=== PATIENT | male | born 2000 | race Hispanic/Latino ===

== ENCOUNTER 2018-11-30 16:02 | Emergency (ER) | payer SELFPAY ==
--- NOTE | 2018-11-30 17:10 | RAD ---
RIGHT FIFTH FINGER THREE VIEWS: 11/30/18 HISTORY: 18-year-old male with history of pain following an injury. Jammed his finger. There is a somewhat oblique displaced fracture off the dorsal base of the distal phalanx of the fifth finger with some volar subluxation of the distal phalanx relative to the middle phalanx. IMPRESSION: Displaced chip type fracture off the dorsal aspect of the base of the distal phalanx with some volar subluxation of the distal phalanx relative to the middle phalanx evidence for a Mallet finger. POS: [facility]
[2018-11-30] MEDS ORDERED: Ibuprofen 800 MG TAB ONE (17:11)
== END 2018-11-30 17:20 | disposition home or self-care (01) ==
LOC: NAV ERS 16:02
DX: S62.636A Displaced fracture of distal phalanx of right little finger, initial encounter for closed fracture (principal); S62.626A Displaced fracture of middle phalanx of right little finger, initial encounter for closed fracture; F17.290 Nicotine dependence, other tobacco product, uncomplicated; X50.9XXA Other and unspecified overexertion or strenuous movements or postures, initial encounter